=== PATIENT | female | born 1955 | race Caucasian/White ===

== ENCOUNTER 2016-10-07 11:40 | Day surgery (SDC) | payer OTHER ==
--- NOTE | ~2016-10-07 | EGD ---
EGD REPORT [facility] [address] [id number] NAME: JONATHAN COVINGTON : [birth year] STATUS : REG [facility]#: [id number] AGE: 61 ADM/REG DATE : 10/07/16 MR#: [id number] REPORT SERV DATE: 10/07/16 DICTATED BY: NICOLE MOSER DATE: 10/07/16 REPORT STATUS : Draft TRANSCRIBED BY: [facility] DATE: 10/07/16 Endoscopy Center Patient Name: Jonathan Covington Date of : 1955 Attending MD: NICOLE MOSER MD Procedure Date No Time: 10/07/2016 Procedure: Upper GI endoscopy Indications: Cirrhosis rule out esophageal varices Referring MD: ROSAURA HUSAIN Medicines: Propofol per Anesthesia Complications: No immediate complications. Procedure: Pre-Anesthesia Assessment: - ASA Grade Assessment: III - A patient with severe systemic disease. After obtaining informed consent, the endoscope was passed under direct vision. Throughout the procedure, the patient's blood pressure, pulse, and oxygen saturations were monitored continuously. The GIF [id number] was introduced through the mouth, and advanced to the second part of duodenum. The upper GI endoscopy was accomplished without difficulty. The patient tolerated the procedure well. Findings: Grade III varices with red marv signs were found in the middle third of the esophagus and in the lower third of the esophagus. They were large in largest diameter. Four bands were successfully placed with incomplete eradication of varices. There was no bleeding at the end of the procedure. Mild portal hypertensive gastropathy was found in the cardia and in the gastric fundus. The examined duodenum was normal. Impression: - Grade III esophageal varices. Incompletely eradicated. Banded. - Portal hypertensive gastropathy. - Normal examined duodenum. Recommendation: - Begin nadolol 20 mg daily. - Liquids today followed by soft foods tomorrow and regular diet thereafter. - Repeat the upper endoscopy in 3 weeks for retreatment. Procedure Code(s): --- Professional --- 48588, Esophagogastroduodenoscopy, flexible, transoral; EGD REPORT [facility] [address] [address] NAME: JONATHAN COVINGTON : [birth year] STATUS : REG [facility] PAT#: [id number] AGE: 61 ADM/REG DATE : 10/07/16 MR#: [id number] REPORT SERV DATE: 10/07/16 DICTATED BY: NICOLE MOSER. DATE: 10/07/16 REPORT STATUS : Draft TRANSCRIBED BY: [employer] DATE: 10/07/16 with band ligation of esophageal/gastric varices Diagnosis Code(s): --- Professional --- I85.10, Secondary esophageal varices without bleeding K76.6, Portal hypertension K31.89, Other diseases of stomach and duodenum K74.60, Unspecified cirrhosis of liver CPT copyright 2013 [employer]. All rights reserved. The codes documented in this report are preliminary and upon high school social studies teacher review may be revised to meet current compliance requirements. NICOLE MOSER MD 10/07/2016 1:55 PM This report has been signed electronically. Number of Addenda: 0 Note Initiated On: 10/07/2016 1:08 PM Scope Withdrawal Time 0 hours 0 minutes 0 seconds [address] [id number]
[~2016-10-07 11:40] MED LIST: FERROUS SULF325 M1 PO; HARD NAILS PO; PROBIOTIC PO; VITAMIN D31000 UNIT PO; VITC500 PO
[2016-10-07 13:11] LABS: HEMATOCRIT 37.9 % (36.0-48.0); HEMOGLOBIN 12.7 g/dL (12.0-16.0); MEAN CORPUS HGB CONC 33.5 g/dL (32.0-36.0); MEAN CORPUSCULAR HEMOGLOB 28.3 pg (26.0-34.0); MEAN CORPUSCULAR VOLUME 84.6 fL (80-100); RBC DISTRIBUTION WIDTH 17.6 % (12.0-16.0); RED CELL COUNT 4.48 10/6/uL (4.0-5.6)
[2016-10-07 13:20] LABS: MANUAL DIFF YES %
[2016-10-07 13:23] LABS: INTERNATIONAL NORMAL RATI 1.6 UNITS (-); PROTIME (NOT ORD) 18.7 SEC (12.0-14.5)
[2016-10-07 13:27] LABS: A/G RATIO 1.1 (0.7-1.9); ALBUMIN 3.5 G/DL (3.5-5.0); ALKALINE PHOSPHATASE 118 U/L (45-117); BUN (BLOOD UREA NITROGEN) 8 MG/DL (6-23); CALCIUM, SERUM 8.7 MG/DL (8.5-10.4); CHLORIDE, SERUM 110 MMOL/L (96-112); CO2 (CARBON DIOXIDE) 31 MMOL/L (24-34); CREATININE 0.59 MG/DL (0.55-1.02); GFR AFRICAN AMERICAN 116 ML/MIN (>=60); GFR NON AFRICAN AMERICAN 100 ML/MIN (>=60); GLOBULIN 3.3 G/DL (2.5-4.1); GLUCOSE, SERUM 90 MG/DL (60-99); POTASSIUM, SERUM 3.8 MMOL/L (3.5-5.3); SGOT(AST) 38 U/L (5-40); SGPT(ALT) 48 U/L (5-65); SODIUM, SERUM 144 MMOL/L (135-148); TOTAL BILIRUBIN 1.1 MG/DL (0-1.2); TOTAL PROTEIN 6.8 G/DL (6.0-8.5)
[2016-10-07 13:31] LABS: LYMPHOCYTES 20 %; MONOCYTES 6 %; MONOCYTES ABSOLUTE (CALC) 0.12 10/3/uL (0.21-1.20); NEUTROPHILS ABSOLUTE (CALC) 1.48 10/3/uL (2.02-8.40); SEGMENTED NEUTROPHIL (0) 74 %; TOTAL NUCLEATED CELLS 100
[2016-10-07 13:32] LABS: PLATELET ESTIMATE DEC (ADEQUATE); RBC MORPHOLOGY NORM (NORMAL)
== END 2016-10-07 23:59 | disposition home or self-care (01) ==
LOC: DMU 11:40
PROVIDERS: Internal Medicine Gastroenterology
PROC: 06L34CZ Occlusion of Esophageal Vein with Extraluminal Device, Percutaneous Endoscopic Approach (ICD-10-PCS; principal; 2016-10-07 13:30)
DX: I85.10 Secondary esophageal varices without bleeding (principal); K76.6 Portal hypertension; K31.89 Other diseases of stomach and duodenum; K74.60 Unspecified cirrhosis of liver; K75.81 Nonalcoholic steatohepatitis (NASH); D69.6 Thrombocytopenia, unspecified; R01.1 Cardiac murmur, unspecified; Z90.710 Acquired absence of both cervix and uterus; Z98.890 Other specified postprocedural states; D64.9 Anemia, unspecified; R73.03 Prediabetes; Z87.09 Personal history of other diseases of the respiratory system; K64.9 Unspecified hemorrhoids; Z91.041 Radiographic dye allergy status; Z88.6 Allergy status to analgesic agent; Z79.899 Other long term (current) drug therapy
CPT/HCPCS: 80053; 82962; 85025; 85610